=== PATIENT | male | born 1985 | race Caucasian/White ===

== ENCOUNTER 2019-11-05 13:41 | Outpatient (CLI) | payer OTHER, SELFPAY ==
--- NOTE | 2019-11-05 14:28 | DI.MRI_ITS ---
EXAM: MR LUMBAR SPINE WO CLINICAL HISTORY: ID AUTH #[id number], LEG PAIN [id number], LUMBAR RADICULOPATHY [id number], LUMBAR SPOND YLOSIS [id number]. TECHNIQUE: Multiplanar multisequence MRI was performed. COMPARISON: No exams were available for comparison FINDINGS: The T12-L1 through L3-4 as well as L5-S1 discs appear intact. At L4-5, there is mild loss of disc he ight and disc desiccation. There is a left paracentral disc herniation with some inferior extrusion of disc material. There is impression on the anterior and left side of the thecal sac. This causes mild central canal stenosis. There is mild left neural foraminal narrowing. There are mild facet nieves int degenerative changes at this level. Marrow signal is normal. The conus medullaris appears intac t. IMPRESSION: Left paracentral disc herniation with inferior extrusion of disc material at L4-5.
== END 2019-11-05 14:01 ==
PROVIDERS: PCP Emergency Medicine; Visit Provider Neurological Surgery
DX: M54.5 Low back pain (principal); M79.606 Pain in leg, unspecified; M54.16 Radiculopathy, lumbar region; M51.17 Intervertebral disc disorders with radiculopathy, lumbosacral region
CPT/HCPCS: 72148

== ENCOUNTER 2020-09-28 00:36 | Outpatient (CLI) | payer OTHER, SELFPAY ==
--- NOTE | 2020-09-28 | DI.MRI_ITS ---
EXAM: MR LUMBAR SPINE WO CLINICAL HISTORY: [id number],LUMBAR SPONDYLOSIS,[id number],LT BUTTOCK AND LEG PAIN,H/O HNP. TECHNIQUE: Multiplanar multisequence MRI of the Lumbar spine was performed. COMPARISON: MR MR LUMBAR SPINE WO from 11/05/2019 FINDINGS: Bones: The last intervertebral disc space is designated the L5/S1 level for the numbering purpose of this examination. The vertebral body heights are well maintained. Alignment is satisfactory. The si gnal characteristics are unremarkable. Cord: The conus tip ends at the L1 level. It is of normal size and signal intensity. T12-L1: No disc herniations or bulges are present. No central spinal canal or neural foraminal stenos is. L1-2: No disc herniations or bulges are present. No central spinal canal or neural foraminal stenosis . L2-3: No disc herniations or bulges are present. No central spinal canal or neural foraminal stenosis . L3-4: No disc herniations or bulges are present. No central spinal canal or neural foraminal stenosis . L4-5: There is a left paracentral disc herniation with extrusion posterior to the L5 vertebral body. It causes left lateral recess stenosis and compresses the left L5 nerve root. Degenerative changes of the facets are noted. These all contribute to cause mild central spinal canal stenosis. There is mild narrowing of the left neural foramen. L5-S1: No disc herniations or bulges are present. No central spinal canal or neural foraminal stenosi s. Soft tissues: The visualized SI joints and sacrum are well maintained. The paraspinal soft tissues ar e unremarkable. IMPRESSION: Stable left paracentral disc herniation at L4-5 with extrusion posterior to the L5 vertebral body. I t causes left lateral recess stenosis and compresses the left L5 nerve root. Degenerative changes at this level also contribute to cause mild central spinal canal stenosis and left neural foraminal constantino nosis. DATA REPOSITORY:
--- OUTSIDE RECORDS SUMMARY | 2020-09-28 00:39 | XMS_ITS | Encounter Summary ---
:1985 Author Organization [facility] Address [address] [place] [id number] Care Team Providers Name Role Phone CARLOS A OLIVER Primary Care Provider Unavailable CARLOS A OLIVER Primary Care Provider Unavailable Selected Encounter This section includes the information on record at [place] for the Encounter. Date/Time Encounter Type Encounter Description Reason Provider Source Sep 23, 2020 12:29 Outpatient Encounter TELEPHONE TRIAGE PM IHE Encounter Template Text not used by [place] Plan of Treatment: Future Appointments (+ 6 months) and Future Tests (+/- 45 days) The Plan of Treatment section includes future care activities for the patient from all [place] treatment facilities. This section includes future appointments and future orders which are active, pending or scheduled.Active, Pending, and Scheduled Orders This section includes a listing of several types of active, pending, and scheduled orders, including clinic medications orders, diagnostic test orders, procedure orders and cons ult orders; where the start date of the order is 45 days before the date of the Encounter or 45 days after the date of the Encounter. The data comes from all [place] treatment facilities. Test Date/Time Test Type Test Details Facility Name Aug 31, 2020 02:23 PM Consult Order [facility] [place] [facility]-NEUROSURGERY [facility] [place] [facility] Sep 04, 2020 12:33 PM Consult Order PHYSICAL [place] [facility] THERAPY-OUTPATIENT [facility] [place] [facility] Sep 24, 2020 10:20 AM Consult Order COMMUNITY CARE-CI [place] [facility] ACUPUNCTURE [facility] [place] [facility] Social History: Smoking Status (Most current) and Tobacco Use (All prior to encounter date) This section includes the most current, and the historical, smoking and tobacco-related health factors from the [place] facility where the Encounter took place.Current Smoking Status This section includes the most current smoking, or tobacco-related health factor, from the [place] facility where the Encounter took place. Date/Time Current Smoking Status Comment Facility Sep 04, 2020 11:00 AM VA-TOBACCO USER EVERY DAY [place] [facility] Tobacco Use History This section includes a history of the smoking, or tobacco-related health factors, that were collected on or before the date of the Encounter. The data comes from the [place] facility where the Encounter took place. 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 [place] [facility] Sep 04, 2020 11:00 AM VA-TOBACCO USE MED NO [place] [facility] Sep 04, 2020 11:00 AM VA-TOBACCO USE WI 30 MIN [place] [facility] Sep 04, 2020 11:00 AM VA-TOBACCO USER EVERY DAY [place] [facility] Dec 25, 2017 01:37 PM CURRENT [place]MOKER [place] [facility] Dec 25, 2017 01:37 PM V1-PT DECL[place]ES REF [place] TOBACCO CESS PRGM [facility] Dec 25, 2017 01:37 PM V1-PT DECLINES TOBACCO [place] CESSATION MEDS [facility] Dec 25, 2017 01:37 PM V1-PT THINKING ABOUT QUIT [place] TOBACCO USE [facility] May 26, 2017 01:03 PM CURRENT SMOKER [place] [facility] Jan 27, 2017 10:24 AM CURRENT SMOKER [place] [facility] Jan 27, 2017 10:24 AM V1-PT READY TO QUIT [place] TOBACCO USE [facility] Dec 31, 2015 09:11 AM V1-PT NOT INTERESTED IN [place] QUIT TOBACCO USE [facility] Oct 30, 2015 01:16 PM AH-BPR CONCERN SMOKING [place] [facility] Oct 30, 2015 01:16 PM AH-BPR SMOKING DEPLOYMENT [place] YES [facility] Oct 30, 2015 01:16 PM CURRENT SMOKER [place] [facility] Sep 10, 2014 02:45 PM [facility] [facility] Sep 10, 2014 02:45 PM V1-PT DECL[place]ES REF [place] TOB[place] CESS PRGM [facility] Sep 10, 2014 02:45 PM V1-PT THINKING ABOUT QUIT [place] TOBAC[place] USE [facility] Sep 10, 2014 02:45 PM V1-TOBACCO CESS MEDS NOT [place] PRESCRIBED Pt. will discuss with PCP tomorr ow. [facility] March 07, 2013 11:00 AM CURRENT SMOK[place] 1pp[place] [facility] March 07, 2013 11:00 AM V1-PT DECL[place]ES REF [place] TOB[place] CESS PRGM [facility] March 07, 2013 11:00 AM V1-PT DECLINES [place]BACCO [place] CESSATION MEDS [facility] March 07, 2013 11:00 AM V1-PT NOT INTERESTED IN [place] QUIT TOBACCO USE [facility] Encounter Notes: All associated encounter notes This section contains the clinical notes associated to the Encounter. Date/Time Encounter Note(s) Provider Source Sep 23, 2020 12:29 PM TELEPHONE ENCOUNTER NOTE: JOSEPH STEVENS [place] LOCAL TITLE: VISN 1 CCC ACTION REQUIRED [facility] STANDARD TITLE: TELEPHONE ENCOUNTER NOTE DATE OF NOTE: SEP 23, 2020@12:29:35 ENTRY DATE: SEP 23, 2020@12:32:31 AUTHOR: JOSEPH STEVENS EXP COSIGNER: URGENCY: STATUS: COMPLETED Type of call: MEDICATION -ACTION REQUIRED. Caller Response: SENT TO PACT The patient, VALENTINA REYNOLDS ([id number]) called the call center. Comments: Patient is calling asking for a consult through [facility] Acup[facility]. The patient has found Pricilla pham in [facility]. Thank you Evaluation/Management Code: HC PRO PHONE CALL 5- 10 MIN ([phone]). Starting at: 09/23/2020 @ 12:29:35 PM Ending at: 09/23/2020 @ 12:32:19 PM Length: 2 minutes. Author: JOSEPH STEVENS Caller Area: * [place] Chief Complaint: Not applicable to call. Class Code: Other specified counseling. Contact Patient's Email Address: /es/ JOSEPH STEVENS [facility] Advanced Insurance Investigator Signed: 09/23/2020 12:32 Receipt Acknowledged By: * AWAITING SIGNATURE * CARLOS A OLIVER * AWAITING SIGNATURE * ESVIN MATTHEWS
--- OUTSIDE RECORDS SUMMARY | 2020-09-28 00:39 | XMS_ITS | Encounter Summary ---
:1985 Author Organization Department [facility] Address [address] [place] [address] Care Team Providers Name Role Phone CARLOS A OLIVER Primary Care Provider Unavailable CARLOS A OLIVER Primary Care Provider Unavailable Selected Encounter This section includes the information on record at [place] for the Encounter. Date/Time Encounter Type Encounter Description Reason Provider Source Aug 31, 2020 10:25 Outpatient Encounter ADMIN PAT ACTIVTIES AM (MASNONCT) IHE Encounter Template Text not used by [place] Plan of Treatment: Future Appointments (+ 6 months) and Future Tests (+/- 45 days) The Plan of Treatment section includes future care activities for the patient from all [place] treatment facilities. This section includes future appointments and future orders which are active, pending or scheduled.Future Appointments This section includes appointments that were scheduled to occur 6 months from the date of the Encounter, up to a maximum of 20 appointments. The [facility] [place] [facility] Appointment Date/Time Appointment Type Appointment Facili ty Name Sep 04, 2020 11:00 AM AMBULATORY - MEDICINE [facility] Sep 14, 2020 03:20 PM AMBULATORY - NONE [facility] Sep 17, 2020 03:00 PM AMBULATORY - PSYCHIATRY [facility] Sep 22, 2020 01:00 PM AMBULATORY - PSYCHIATRY [facility] Active, Pending, and Scheduled Orders This section includes a listing of several types of active, pending, and scheduled orders, including clinic medications orders, diagnostic test orders, procedure orders and consult orders; where the start date of the order is 45 days before the date of the Encounter or 45 days after the date of the Encounter. The data comes from all [place] treatment facilities. Test Date/Time Test Type Test Details Facility Name Aug 31, 2020 02:23 PM Consult Order [place] [place] [facility] CARE-NEUROSURGERY Cons [place] [facility] Sep 04, 2020 12:33 PM Consult Order PHYSICAL [place] [facility] THERAPY-OUTPATIENT Cons [place] [facility] Sep 24, 2020 10:20 AM Consult Order COMMUNITY CARE-CIH [place] [facility] ACUPUNCTURE Cons [place] [facility] Social History: Smoking Status (Most current) and Tobacco Use (All prior to encounter date) This section includes the most current, and the historical, smoking and tobacco-related health factors from the [place] facility where the Encounter took place.Current Smoking Status This section includes the most current smoking, or tobacco-related health factor, from the [place] facility where the Encounter took place. Date/Time Current Smoking Status Comment Facility Dec 25, 2017 01:37 PM CURRENT SMOKER [place] [facility] Tobacco Use History This section includes a history of the smoking, or tobacco-related health factors, that were collected on or before the date of the Encounter. The data comes from the [place] facility where the Encounter took place. Date/Time Smoking Status/Tobacco Use Comment [facility] Dec 25, 2017 01:37 PM V1-PT DECLINES REF TO [place] TOB[place] CESS PRGM [facility] Dec 25, 2017 01:37 PM V1-PT DECLINES TOBACCO [place] CESSATION MEDS [facility] Dec 25, 2017 01:37 PM V1-PT THINKING ABOUT QUIT [place] TOBACCO USE [facility] May 26, 2017 01:03 PM CURRENT SMOKER [place] [facility] Jan 27, 2017 10:24 AM CURRENT SMOKER [place] [facility] Jan 27, 2017 10:24 AM V1-PT READY TO QUIT [place] TOBACCO USE [facility] Dec 31, 2015 09:11 AM V1-PT NOT INTERESTED IN [place] QUIT TOBACCO USE [facility] Oct 30, 2015 01:16 PM AH-BPR CONCERN SMOKING [place] [facility] Oct 30, 2015 01:16 PM AH-BPR SMOKING DEPLOYMENT [place] YES [facility] Oct 30, 2015 01:16 PM CURRENT [place]MOKER [place] [facility] Sep 10, 2014 02:45 PM CURRENT SMOKER [place] [facility] Sep 10, 2014 02:45 PM V1-PT DECLINES REF [place] [facility] [facility]ESS [facility] Sep 10, 2014 02:45 PM V1-PT THINKING ABOUT QUIT [place] [facility] Sep 10, 2014 02:45 PM V1-TOBACCO CESS MEDS NOT [place] PRESCRIBED Pt. will discuss with PCP tomorr ow. [facility] March 07, 2013 11:00 AM CURRENT SMOK[place] 1pp[place] [facility] March 07, 2013 11:00 AM V1-PT DECLINES REF [place] TOB[place] CESS PRGM [facility] March 07, 2013 11:00 AM V1-PT DECLINES [place]BACCO [place] [facility] March 07, 2013 11:00 AM V1-PT NOT INTERESTED IN [place] QUIT TOBACCO USE [facility] Encounter Notes: All associated encounter notes This section contains the clinical notes associated to the Encounter. Date/Time Encounter Note(s) Provider Source Aug 31, 2020 10:25 AM PRIMARY CARE ADMINISTRATIVE NOTE: EL HOOVER [place] LOCAL TITLE: Administrative Note/Primary Care [facility] STANDARD TITLE: PRIMARY CARE ADMINISTRATIVE NOTE DATE OF NOTE: AUG 31, 2020@10:25 ENTRY DATE: AUG 31, 2020@10:25:39 AUTHOR: AZEB HOOVER EXP COSIGNER: URGENCY: STATUS: COMPLETED Administrative Note/Primary Care Has ADDE NDA CONSTANCE REYNOLDS [address] [place], [place] [address] CARLOS A OLIVER 2 O [] [place] [] Spouse [] Other [id number] MALE presented w/ CHIEF COMPLAINT OF:p t called with request for renewal of consult to [facility] for continuing care for same issue. 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
--- OUTSIDE RECORDS SUMMARY | 2020-09-28 00:40 | XMS_ITS | Encounter Summary ---
:1985 Author Organization Department [facility] Address [address] [place] [address] Care Team Providers Name Role Phone CARLOS A OLIVER Primary Care Provider Unavailable CARLOS A OLIVER Primary Care Provider Unavailable Selected Encounter This section includes the information on record at [place] for the Encounter. Date/Time Encounter Type Encounter Description Reason Provider Source Jun 25, 2020 01:29 Outpatient Encounter ADMIN PAT ACTIVTIES PM (MASNONCT) IHE Encounter Template Text not used by [place] Plan of Treatment: Future Appointments (+ 6 months) and Future Tests (+/- 45 days) The Plan of Treatment section includes future care activities for the patient from all [place] treatment facilities. This section includes future appointments and future orders which are active, pending or scheduled.Future Appointments This section includes appointments that were scheduled to occur 6 months from the date of the Encounter, up to a maximum of 20 appointments. The data [facility] [place] [facility] Appointment Date/Time Appointment Type Appointment Facili ty Name Aug 31, 2020 02:00 PM AMBULATORY - REHAB MEDICINE [place] [facility] Sep 04, 2020 11:00 AM AM[place]UL[place]ORY [place]IC[place] [facility] Sep 14, 2020 03:20 PM AM[facility]ORY - NONE [place] [facility] Sep 17, 2020 03:00 PM AMBULATORY - PS[place]CHIATRY [place] [facility] Sep 22, 2020 01:00 PM AMBULATORY - PS[place]CHIATRY [place] [facility] Social History: Smoking Status (Most current) and Tobacco Use (All prior to encounter date) This section includes the most current, and the historical, smoking and tobacco-related health factors from the [place] facility where the Encounter took place.Current Smoking Status This section includes the most current smoking, or tobacco-related health factor, from the [place] facility where the Encounter took place. Date/Time Current Smoking Status Comment Facility Dec 25, 2017 01:37 PM CURRENT [place]MOK[place] [facility] Tobacco Use History This section includes a history of the smoking, or tobacco-related health factors, that were collected on or before the date of the Encounter. The data comes from the [place] facility where the Encounter took place. Date/Time Smoking Status/Tobacco Use Comment [facility] Dec 25, 2017 01:37 PM V1-PT DECLINES REF [place] TO[place] CESS [facility] Dec 25, 2017 01:37 PM V1-PT DECLINES TOBACCO [place] CESSATION MEDS [facility] Dec 25, 2017 01:37 PM V1-PT THINKING ABOUT QUIT [place] TOBACCO USE [facility] May 26, 2017 01:03 PM CURRENT SMOKER [place] [facility] Jan 27, 2017 10:24 AM CURRENT SMOKER [place] [facility] Jan 27, 2017 10:24 AM V1-PT READY TO QUIT [place] TOBACCO USE [facility] Dec 31, 2015 09:11 AM V1-PT NOT INTERESTED IN [place] QUIT TOBACCO USE [facility] Oct 30, 2015 01:16 PM AH-BPR CONCERN SMOKING [place] [facility] Oct 30, 2015 01:16 PM AH-BPR SMOKING DEPLOYMENT [place] YES [facility] Oct 30, 2015 01:16 PM CURRENT SMOKER [place] [facility] Sep 10, 2014 02:45 PM CURRENT SMOKER [place] [facility] Sep 10, 2014 02:45 PM V1-PT DECLINES REF [place] TO[place] CESS [facility]GM [facility] Sep 10, 2014 02:45 PM V1-PT THINKING ABOUT QUIT [place] TOBACCO USE [facility] Sep 10, 2014 02:45 PM V1-TOBACCO CESS MEDS NOT [place] PRESCRIBED Pt. will discuss with PCP tomorr ow. [facility] March 07, 2013 11:00 AM CURRENT SMOKER [place] 1ppd [facility] March 07, 2013 11:00 AM V1-PT DECLINES [place] CESS [facility] March 07, 2013 11:00 AM V1-PT DECLINES [place] [facility] [facility] March 07, 2013 11:00 AM V1-PT NOT INTERESTED IN [place] QUIT [facility]BACCO USE [facility] Encounter Notes: All associated encounter notes This section contains the clinical notes associated to the Encounter. Date/Time Encounter Note(s) Provider Source Jun 25, 2020 01:29 PM ACCOUNTING OF DISCLOSURES NOTE: [place] LOCAL TITLE: STATE PRESCRIPTION DRUG MONITORING PROGRAM (SPDMP) [facility] STANDARD TITLE: ACCOUNTING OF DISCLOSURES NOTE DATE OF NOTE: JUN 25, 2020@13:29 ENTRY DATE: JUN 25, 2020@13:29:59 AUTHOR: CURT ZHANG EXP COSIGNER: URGENCY: STATUS: COMPLETED V1-STATE PRESCRIPTION DRUG MONITORING PROGRAM (S PDMP) The purpose of this query was a part of the medi cation reconciliation process for the: Review for patient safety. The following State Prescription Drug Monitoring Program(s) were queried for this patient: [facility] (01/25/2018: [place] PDMP information may be placed in the patient medical records that pertains to MD specific data ONLY, not from an interstate query) [facility] No prescription(s) for controlled substances wer e found to be filled outside the [facility]. /zack/ CURT ZHANG Signed: 06/25/2020 13:30
--- OUTSIDE RECORDS SUMMARY | 2020-09-28 00:40 | XMS_ITS | Encounter Summary ---
:1985 Author Organization [facility] Address [address] [place] [id number] Care Team Providers Name Role Phone CARLOS A OLIVER Primary Care Provider Unavailable CARLOS A OLIVER Primary Care Provider Unavailable Selected Encounter This section includes the information on record at [place] for the Encounter. Date/Time Encounter Type Encounter Reason Provider Source Description Sep 22, 2020 PSYTX W PT 30 TELEPHONE ICD-10-CM ROBSON,CASE 01:00 PM MINUTES M54.5 Low back Y EDWARD pain with Provider Comments: Chronic back pain ([facility] [id number]) IHE Encounter Template Text not used by [facility] Assessments - Encounter Diagnoses This section includes the primary and secondary diagnoses documented forthe Encounter. Date/Time Primary/Secondary Diagnosis Name Provider Source Diagnosis Sep 22, 2020 PRIMARY Low back pain LEELA MIRANDA 01:00 PM M [facility] Sep 22, 2020 SECONDARY Post-traumatic LEELA MIRANDA 01:00 PM stress disorder, M [facility] chronic Plan of Treatment: Future Appointments (+ 6 months) and Future Tests (+/- 45 days) The Plan of Treatment section includes future care activities for the patient from all [place] treatment facilities. This section includes future appointments [...] the Encounter. The data comes from all [place] treatment facilities. Test Date/Time Test Type Test Details Facility Name Aug 31, 2020 02:23 PM Consult Order COMMUNITY BREANN [place] [facility] CARE-NEUROSURGERY Cons Catalyst Operator's Choice Sep 04, 2020 12:33 PM Consult Order PHYSICAL BREANN SHARP [facility] THERAPY-OUTPATIENT Cons Catalyst Operator's Choice Sep 24, 2020 10:20 AM Consult Order COMMUNITY CARE-CIH BREANN Christopher LONGER LILA [facility] ACUPUNCTURE Cons Catalyst Operator's Choice Surgical Procedures: All associated to the encounter This section includes all Surgical Procedures and Surgical Procedure Notes associated to the Encounter.Surgical Procedures This section includes all Surgical Procedures associated to the Encounter.Surgical Procedure Date/Time Procedure Procedure Type Procedure Provider Source Qualifiers Sep 22, 2020 Psychotherapy, PSYTX W PT 30 Other Procedure Monique CHANCE BREANN MASON 01:00 PM 30 minutes with MINUTES CPT Code(s): MAHSA SHARP [facility] Patient AH-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 Social History: Smoking Status (Most current) and Tobacco Use (All prior to encounter date) This section includes the most current, and the historical, smoking and tobacco-related health factors from the [place] facility where the Encounter took place.Current Smoking Status This section includes the most current smoking, or tobacco-related health factor, from the [place] facility where the Encounter took place. Date/Time Current Smoking Status Comment Facility Sep 04, 2020 11:00 AM VA-TOBACCO USER EVERY DAY BREANN MASON [facility] Tobacco Use History This section includes a history of the smoking, or tobacco-related health factors, that were collected on or before the date of the Encounter. The data comes from the [place] facility where the Encounter took place. 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 BREANN SHARP [facility] Sep 04, 2020 11:00 AM VA-TOBACCO USE MED NO [place]SE [place] [facility] Sep 04, 2020 11:00 AM VA-TOBACCO USE WI 30 MIN W OLY [place] SHARP [facility] Sep 04, 2020 11:00 AM VA-TOBACCO USER EVERY DAY BREANN SHARP [facility] Dec 25, 2017 01:37 PM CURRENT SMOKER BREANN DIANACindy SHARP [facility] Dec 25, 2017 01:37 PM V1-PT DECL[place]ES [place] TO[place] CESS PRGM [facility] Dec 25, 2017 01:37 PM V1-PT DECL[place]ES [place]AC[place] CESSATION MEDS [facility] Dec 25, 2017 01:37 PM V1-PT THINKING ABOUT QUIT [place] TO[facility]ACCO USE [facility] May 26, 2017 01:03 PM CURRENT [place]MOK[place] [facility] Jan 27, 2017 10:24 AM CURRENT SMOKER [place] [facility] Jan 27, 2017 10:24 AM V1-PT READY TO QUIT [place] TOBACCO USE [facility] Dec 31, 2015 09:11 AM V1-PT NOT INTERESTED IN [place] QUIT TOBACCO USE [facility] Oct 30, 2015 01:16 PM AH-BPR CONCERN SMOKING [place] [facility] Oct 30, 2015 01:16 PM AH-BPR SMOKING DEPLOYMENT [place] YES [facility] Oct 30, 2015 01:16 PM CURRENT SMOKER [place] [facility] Sep 10, 2014 02:45 PM CURRENT [place]MOK[place] [facility] Sep 10, 2014 02:45 PM V1-PT DECLINES REF [place] TOB[place] CESS PRGM [facility] Sep 10, 2014 02:45 PM V1-PT THINKING ABOUT QUIT [place] TOBACCO USE [facility] Sep 10, 2014 02:45 PM V1-TOBACCO CESS MEDS NOT [place] PRESCRIBED Pt. will discuss with PCP tomorr ow. [facility] March 07, 2013 11:00 AM CURRENT SMOKER [place] 1ppd [facility] March 07, 2013 11:00 AM V1-PT DECLINES REF [place] TOB[place] CESS PRGM [facility] March 07, 2013 11:00 AM V1-PT DECLINES [place]BACCO [place] CESSATION MEDS [facility] March 07, 2013 11:00 AM V1-PT NOT INTERESTED IN [place] QUIT TOBACCO USE [facility]
--- OUTSIDE RECORDS SUMMARY | 2020-09-28 00:40 | XMS_ITS | Encounter Summary ---
:1985 Author Organization Department [facility] Address [address] [place] [id number] Care Team Providers Name Role Phone CARLOS A OLIVER Primary Care Provider Unavailable CARLOS A OLIVER Primary Care Provider Unavailable Selected Encounter This section includes the information on record at [place] for the Encounter. Date/Time Encounter Type Encounter Reason Provider Source Description Sep 04, 2020 Outpatient TELEPHONE PRIMARY ICD-10-CM M54.5 CARLOS A OLIVER 11:00 AM Encounter CARE Low back pain with Provider Comments: Chronic back pain ([facility] [phone]) IHE Encounter Template Text not used by VA Assessments - Encounter Diagnoses This section includes the primary and secondary diagnoses documented forthe Encounter. Date/Time Primary/Secondary Diagnosis Name Provider Source Diagnosis Sep 04, 2020 11:00 PRIMARY Low back pain CARLOS A OLIVER [place] [facility] Plan of Treatment: Future Appointments (+ 6 months) and Future Tests (+/- 45 days) The Plan of Treatment section includes future care activities for the patient from all [place] treatment facilities. This section includes future appointments and future orders which are active, pending or scheduled.Future Appointments This section includes appointments that were scheduled to occur 6 months from the date of the Encounter, up to a maximum of 20 appointments. The [facility] [place] [facility] Appointment Date/Time Appointment Type Appointment Facili ty Name Sep 14, 2020 03:20 PM AMBULATORY - NONE [facility] Sep 17, 2020 03:00 PM AMBULATORY - PSYCHIATRY [facility] Sep 22, 2020 01:00 PM AMBULATORY - PSYCHIATRY [facility] Active, Pending, and Scheduled Orders This section includes a listing of several types of active, pending, and scheduled orders, including clinic medications orders, diagnostic test orders, procedure orders and consult orders; where the start date of the order is 45 days before the date of the Encounter or 45 days after the date of the Encounter. The data comes from all [place] treatment facilities. Test Date/Time Test Type Test Details Facility Name Aug 31, 2020 02:23 PM Consult Order COMMUNITY [place] [facility] CARE-NEUROSURGERY Cons Alarm Technician's Choice Sep 04, 2020 12:33 PM Consult Order PHYSICAL [place] [facility] THERAPY-OUTPATIENT Cons Alarm Technician's Choice Sep 24, 2020 10:20 AM Consult Order COMMUNITY CARE-CIH [place] [facility] ACUPUNCTURE Cons Alarm Technician's Choice Social History: Smoking Status (Most current) and Tobacco Use (All prior to encounter date) This section includes the most current, and the historical, smoking and tobacco-related health factors from the [place] facility where the Encounter took place.Current Smoking Status This section includes the most current smoking, or tobacco-related health factor, from the [place] facility where the Encounter took place. Date/Time Current Smoking Status Comment Facility Sep 04, 2020 11:00 AM VA-TOBACCO USER EVERY DAY BREANN [place] [facility] Tobacco Use History This section includes a history of the smoking, or tobacco-related health factors, that were collected on or before the date of the Encounter. The data comes from the [place] facility where the Encounter took place. 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 FUNDER NO [place] [facility] Sep 04, 2020 11:00 AM VA-TOBACCO USE MED NO [place] [facility] Sep 04, 2020 11:00 AM VA-TOBACCO USE WI 30 MIN W [place] [facility] Sep 04, 2020 11:00 AM VA-TOBACCO USER EVERY DAY [place] [facility] Dec 25, 2017 01:37 PM CURRENT SMOKER [place] [facility] Dec 25, 2017 01:37 PM V1-PT DECLINES REF [place] TO[place] CESS PRGM [facility] Dec 25, 2017 01:37 PM V1-PT DECLINES [place]BACCO [place] CESSATION MEDS [facility] Dec 25, 2017 01:37 PM V1-PT THINKING ABOUT QUIT [place] TOBACCO USE [facility] May 26, 2017 01:03 PM CURRENT SMOKER [place] [facility] Jan 27, 2017 10:24 AM CURRENT SMOKER [place] [facility] Jan 27, 2017 10:24 AM V1-PT READY TO QUIT [place] TOBACCO USE [facility] Dec 31, 2015 09:11 AM V1-PT NOT INTERESTED IN [place] QUIT TOBACCO USE [facility] Oct 30, 2015 01:16 PM AH-BPR CONCERN SMOKING [place] [facility] Oct 30, 2015 01:16 PM AH-BPR SMOKING DEPLOYMENT BRE[place] YES [facility] Oct 30, 2015 01:16 PM CURRENT SMOKER [place] [facility] Sep 10, 2014 02:45 PM CURRENT SMOKER BRE[place] [facility] Sep 10, 2014 02:45 PM V1-PT DECL[place]ES [place]F [place] CESS PRGM [facility] Sep 10, 2014 02:45 PM V1-PT THINKING ABOUT QUIT [place] TOB[place]CO [place] [facility] Sep 10, 2014 02:45 PM V1-TOBACCO CESS MEDS NOT [place] PRESCRIBED Pt. will discuss with PCP tomorr ow. [facility] March 07, 2013 11:00 AM CURRENT SMOKER [place] 1ppd [facility] March 07, 2013 11:00 AM V1-PT DECLINES REF [place] TO[place] CESS PRGM [facility] March 07, 2013 11:00 AM V1-PT DECLINES [place]BACCO [place] CESSATION MEDS [facility] March 07, 2013 11:00 AM V1-PT NOT INTERESTED IN [place] QUIT TOBACCO USE [facility] Encounter Notes: All associated encounter notes This section contains the clinical notes associated to the Encounter. Date/Time Encounter Note(s) Provider Source Sep 04, 2020 12:06 PM INTERNAL MEDICINE TELEPHONE ENCOUNTER NOTE : CARLOS A OILVER [place] [facility] LOCAL TITLE: GIM Telephone Note STANDARD TITLE: INTERNAL MEDICINE TELEPHONE ENCO UNTER NOTE DATE OF NOTE: SEP 04, 2020@12:06 ENTRY DATE: SEP 04, 2020@12:06:34 AUTHOR: CARLOS A OLIVER EXP COSIGNER: URGENCY: STATUS: COMPLETED GIM Telephone Note Has ADDENDA Routine visit - phone due to COVID Clinical reminders - tob, do es not want to quit; alc - 3 drinks daily (whisky), on weekends more; PTSD screen positive In bed since back pain started but did go over t o his parents for a meal ROS no fevers, no nausea, no chest pain, no dysp merlin, slowly worsening cough (burn pits), no abd pain, no bowel/bladder issue s Not working for a couple weeks - works an [employer] Has a dog named Presley, a mastiff Meds reviewed and reconciled Lumbar radiculopathy - working with pain clinic who referred him to neurosurgery; no opioids given excessive alcohol use, we discussed this again today PTSD - he is willing to speak with a counselor a bout this and understands my concern about his alcohol us e which he uses to decrease his stress levels which he admits are related to PTSD. Counselled again on alcohol use concerns and advised limits. Burn pit exposure - PFTs in 2015 normal, conside r repeating post-pandemic RTC VVC 6 months Adding VVC test caller for non-urgent test call /zack/ CARLOS A Raygoza MD Signed: 09/04/2020 12:32 Receipt Acknowledged By: 09/07/2020 13:46 /es/ CURT BEASLEY 09/07/2020 ADDENDUM STATUS: COMPLETED Info Only: [employer] Capable: Patient has successfully tested or used [employer]. NOTE This freelance writer contacted this patien t and performed a VVC test successfully with him. This patient will be using his iPhone as his VVC device. He successfully downloaded the required florentin that [employer] requires to perform successful VVC visits. This patient's [facility] address is the correct address to use as well. This patient is all set for future VVC visits. /es/ CURT ZHANG Signed: 09/07/2020 13:45 Receipt Acknowledged By: * AWAITING SIGNATURE * CARLOS A OLIVER
--- OUTSIDE RECORDS SUMMARY | 2020-09-28 00:40 | XMS_ITS | Encounter Summary ---
:1985 Author Organization Department [facility] Address [address] [place] [address] Care Team Providers Name Role Phone CARLOS A OLIVER Primary Care Provider Unavailable CARLOS A OLIVER Primary Care Provider Unavailable Selected Encounter This section includes the information on record at [place] for the Encounter. Date/Time Encounter Type Encounter Description Reason Provider Source Aug 31, 2020 03:31 Outpatient Encounter ADMIN PAT ACTIVTIES PM ([facility]) IHE Encounter Template Text not used by MD Plan of Treatment: Future Appointments (+ 6 months) and Future Tests (+/- 45 days) The Plan of Treatment section includes future care activities for the patient from all [place] treatment facilities. This section includes future appointments and future orders which are active, pending or scheduled.Future Appointments This section includes appointments that were scheduled to occur 6 months from the date of the Encounter, up to a maximum of 20 appointments. The [facility] Appointment Date/Time Appointment Type Appointment Facili ty Name Sep 04, 2020 11:00 AM AMBULATORY - MEDICINE [facility] Sep 14, 2020 03:20 PM AMBULATORY - NONE [facility] Sep 17, 2020 03:00 PM AMBULATORY - PSYCHIATRY [facility] Sep 22, 2020 01:00 PM AMBULATORY - PSYCHIATRY [facility] Active, Pending, and Scheduled Orders This section includes a listing of several types of active, pending, and scheduled orders, including clinic medications orders, diagnostic test orders, procedure orders and consult orders; where the start date of the order is 45 days before the date of the Encounter or 45 days after the date of the Encounter. The data comes from all [place] treatment facilities. Test Date/Time Test Type Test Details Facility Name Aug 31, 2020 02:23 PM Consult Order COMMUNITY BREANN [place] [facility] CARE-NEUROSURGERY Cons Barrel Charrer Helper's Choice Sep 04, 2020 12:33 PM Consult Order PHYSICAL BREANN [place] [facility] THERAPY-OUTPATIENT Cons Barrel Charrer Helper's Choice Sep 24, 2020 10:20 AM Consult Order COMMUNITY CARE-CIH [place] [facility] ACUPUNCTURE Cons Barrel Charrer Helper's Choice Social History: Smoking Status (Most current) and Tobacco Use (All prior to encounter date) This section includes the most current, and the historical, smoking and tobacco-related health factors from the [place] facility where the Encounter took place.Current Smoking Status This section includes the most current smoking, or tobacco-related health factor, from the [place] facility where the Encounter took place. Date/Time Current Smoking Status Comment Facility Dec 25, 2017 01:37 PM CURRENT SMOKER BREANN [place] [facility] Tobacco Use History This section includes a history of the smoking, or tobacco-related health factors, that were collected on or before the date of the Encounter. The data comes from the [place] facility where the Encounter took place. Date/Time Smoking Status/Tobacco Use Comment [facility] Dec 25, 2017 01:37 PM V1-PT DECL[place]ES [place]F [place] TO[place] CESS PRGM [facility] Dec 25, 2017 01:37 PM V1-PT DECLINES [place]ACCO [place] CESSATION MEDS [facility] Dec 25, 2017 01:37 PM V1-PT THINKING ABOUT QUIT [place] TOBACCO USE [facility] May 26, 2017 01:03 PM CURRENT SMOKER [place] [facility] Jan 27, 2017 10:24 AM CURRENT SMOKER [place] [facility] Jan 27, 2017 10:24 AM V1-PT READY TO QUIT [place] TOBACCO USE [facility] Dec 31, 2015 09:11 AM V1-PT NOT INTERESTED IN [place] QUIT TOBACCO USE [facility] Oct 30, 2015 01:16 PM AH-BPR CONCERN SMOKING [place] [facility] Oct 30, 2015 01:16 PM AH-BPR SMOKING DEPLOYMENT [place] YES [facility] Oct 30, 2015 01:16 PM CURRENT SMOKER [place] [facility] Sep 10, 2014 02:45 PM CURRENT SMOKER [place] [facility] Sep 10, 2014 02:45 PM V1-PT DECLINES REF [place] TOB[place] CESS PRGM [facility] Sep 10, 2014 02:45 PM V1-PT THINKING ABOUT QUIT [place] TOBACCO USE [facility] Sep 10, 2014 02:45 PM V1-TOBACCO CESS MEDS NOT [place] PRESCRIBED Pt. will discuss with PCP tomorr ow. [facility] March 07, 2013 11:00 AM CURRENT SMOKER [place] 1ppd [facility] March 07, 2013 11:00 AM V1-PT DECLINES [place]F [place] TO[place] CESS PRGM [facility] March 07, 2013 11:00 AM V1-PT DECLINES [place]ACCO [place] CESSATION MEDS [facility] March 07, 2013 11:00 AM V1-PT NOT INTERESTED IN [place] QUIT TOBACCO USE [facility] Encounter Notes: All associated encounter notes This section contains the clinical notes associated to the Encounter. Date/Time Encounter Note(s) Provider Source Aug 31, 2020 03:32 PM ADMINISTRATIVE NOTE: QUEENIE GARCIA [place] LOCAL TITLE: Has Admin Note [facility] STANDARD TITLE: ADMINISTRATIVE NOTE DATE OF NOTE: AUG 31, 2020@15:32 ENTRY DATE: AUG 31, 2020@15:32:08 AUTHOR: QUEENIE GARCIA EXP COSIGNER: URGENCY: STATUS: COMPLETED Reason for call Clinic Name:PHARMACY [facility] [place] [facility] stating his friend Matthew Monzon w ill be picking up his prescription for him. /zack/ QUEENIE GARCIA Pension Agent Signed: 08/31/2020 15:35
--- OUTSIDE RECORDS SUMMARY | 2020-09-28 00:40 | XMS_ITS | Encounter Summary ---
:1985 Author Organization Department [facility] Address [address] [place] [address] Care Team Providers Name Role Phone CARLOS A OLIVER Primary Care Provider Unavailable CARLOS A OLIVER Primary Care Provider Unavailable Selected Encounter This section includes the information on record at [place] for the Encounter. Date/Time Encounter Type Encounter Reason Provider Source Description Aug 31, 2020 Outpatient TELEPHONE/SURGERY ICD-10-CM M47.26 TERRIE VELEZ 02:00 PM Encounter Other spondylosis MATT with radiculopathy, lumbar region with Provider Comments: Other Spondylosis with Radiculopathy, Lumbar Region IHE Encounter Template Text not used by [facility] Assessments - Encounter Diagnoses This section includes the primary and secondary diagnoses documented forthe Encounter. Date/Time Primary/Secondary Diagnosis Name Provider Source Diagnosis Aug 31, 2020 PRIMARY Other spondylosis JENNIFER VELEZ BREANN ELA[place] 02:00 PM with [facility] radiculopathy, lumbar region Plan of Treatment: Future Appointments (+ 6 months) and Future Tests (+/- 45 days) The Plan of Treatment section includes future care activities for the patient from all [place] treatment facilities. This section includes future appointments and future orders which are active, pending or scheduled.Future Appointments This section includes appointments that were scheduled to occur 6 months from the date of the Encounter, up to a maximum of 20 appointments. The [facility] Appointment Date/Time Appointment Type Appointment Facili ty Name Sep 04, 2020 11:00 AM AMBULATORY - MEDICINE [facility] Sep 14, 2020 03:20 PM AMBULATORY - NONE [facility] Sep 17, 2020 03:00 PM AMBULATORY - PSYCHIATRY BREANN [place]OSS [facility] Sep 22, 2020 01:00 PM AMBULATORY - PSYCHIATRY BREANN [place] [facility] Active, Pending, and Scheduled Orders This section includes a listing of several types of active, pending, and scheduled orders, including clinic medications orders, diagnostic test orders, procedure orders and consult orders; where the start date of the order is 45 days before the date of the Encounter or 45 days after the date of the Encounter. The data comes from all [place] treatment facilities. Test Date/Time Test Type Test Details Facility Name Aug 31, 2020 02:23 PM Consult Order COMMUNITY [place] [facility] CARE-NEUROSURGERY [employer] Sep 04, 2020 12:33 PM Consult Order PHYSICAL [place] [facility] THERAPY-OUTPATIENT [employer] Sep 24, 2020 10:20 AM Consult Order COMMUNITY CARE-CI [place] [facility] ACUPUNCTURE [employer] [facility] Social History: Smoking Status (Most current) and Tobacco Use (All prior to encounter date) This section includes the most current, and the historical, smoking and tobacco-related health factors from the [place] facility where the Encounter took place.Current Smoking Status This section includes the most current smoking, or tobacco-related health factor, from the [place] facility where the Encounter took place. Date/Time Current Smoking Status Comment Facility Dec 25, 2017 01:37 PM CURRENT SMOKER BREANN CROSST [facility] Tobacco Use History This section includes a history of the smoking, or tobacco-related health factors, that were collected on or before the date of the Encounter. The data comes from the [place] facility where the Encounter took place. Date/Time Smoking Status/Tobacco Use Comment Jeanette diaz Dec 25, 2017 01:37 PM V1-PT DECL[place]ES [place]F [place] TO[place]AC[place] CESS PRGM [facility] Dec 25, 2017 01:37 PM V1-PT DECL[place]ES [place] CESSATION MEDS [facility] Dec 25, 2017 01:37 PM V1-PT THINKING ABOUT QUIT [place] TOBACCO USE [facility] May 26, 2017 01:03 PM CURRENT SMOKER [place] [facility] Jan 27, 2017 10:24 AM CURRENT SMOKER [place] [facility] Jan 27, 2017 10:24 AM V1-PT READY TO QUIT [place] TOBACCO USE [facility] Dec 31, 2015 09:11 AM V1-PT NOT [place]ESTED [place] QUIT TOBACCO USE [facility] Oct 30, 2015 01:16 PM AH-BPR CONCERN SMOKING [place] [facility] Oct 30, 2015 01:16 PM AH-BPR SMOKING DEPLOYMENT [place] YES [facility] Oct 30, 2015 01:16 PM CURRENT SMOKER [place] [facility] Sep 10, 2014 02:45 PM CURRENT [place] [facility] Sep 10, 2014 02:45 PM V1-PT DECLINES REF [place] TOB[place] CESS PRGM [facility] Sep 10, 2014 02:45 PM V1-PT THINKING ABOUT QUIT [place] TOBACCO USE [facility] Sep 10, 2014 02:45 PM V1-TOBACCO CESS MEDS [place] PRESCRIBED Pt. will discuss with PCP tomorr ow. [facility] March 07, 2013 11:00 AM CURRENT SMOKER [place] 1ppd [facility] March 07, 2013 11:00 AM V1-PT DECL[place]ES [place] [facility] March 07, 2013 11:00 AM V1-PT DECLINES [place]BACCO [place] CESSATION MEDS [facility] March 07, 2013 11:00 AM V1-PT NOT INTERESTED IN [place] QUIT TOBACCO USE [facility] Encounter Notes: All associated encounter notes This section contains the clinical notes associated to the Encounter. Date/Time Encounter Note(s) Provider Source Aug 31, 2020 02:03 PM PAIN NOTE: [place]IFER VELE[place] LOCAL TITLE: Pain Services Note/Anesthesia [facility] STANDARD TITLE: PAIN NOTE DATE OF NOTE: AUG 31, 2020@14:03 ENTRY DATE: AUG 31, 2020@14:03:35 AUTHOR: JENNIFER VELEZ EXP COSIGNER: URGENCY: STATUS: COMPLETED Pain Clinic Telephone Follow-up Note Chief Complaint: low back and LLE pain HPI/Interval history: The armand fierro was last seen in the Pain Clinic on 09/12/[address] Cotton at which time he had LEFT SI joint i njection without much relief. he has also had LESI and TFESI in the pa st also without any relief. He did see [facility] Neurology for NS consult earlier is year and he would like to return there. He had MRI completed there at eva t time. Since that time, pt had oral steroid tap er with good relief until now, when he reached over to get somethin g on his dash and has had increased pain since then. Pain is in low back with radiation into LLE. +LL E weakness Pain level 10/10 today. Pt is asking for another trial of oral steroid t aper which helped him. He is also requesting NS referral. Allergies: HAY DUST Medications: Active Outpatient Medications (excluding Supplie s): Active Outpatient Medications Status 1) OMEPRAZOLE 20MG EC CAP TAKE ONE CAPSULE BY MOUTH ACTIVE EVERY MORNING BEFORE BREAKFAST FOR STOMAC H ACID (TAKE HALF-HOUR BEFORE A MEAL(S) Active Non-VA Medications Status 1) Non-VA CALCIUM CARBONATE TAB DOSAGE UNKNOWN MOUTH ACTIVE TWICE DAILY NEEDED 2 Total Medications REVIEW OF SYSTEMS: He denies any unexplained weight loss, f ever or chills. No saddle anesthesia, no LE weakness, no urinary or bowel retention or incontinence. No difficulty with balance or ambulation. PHYSICAL EXAM: n/a Impression/ Problem List / Plan of Management: 35 yo M with chronic LBP and LLE pain wh o is requesting oral steroid taper for LLE pain exacerbation since he had good relief w ith taper in February 2020. He also need NS consult db dale I will place today. He saw them earlier this year but they said he needs another consult for it to be covered by the [facility]. About 20 minutes spent on this call. /zack/ JENNIFER VELEZ Anesthesiologist Signed: 08/31/2020 14:20
--- OUTSIDE RECORDS SUMMARY | 2020-09-28 00:40 | XMS_ITS ---
:1985 Author Organization [facility] Address [address] [place] [address] Care Team Providers Name Role Phone CARLOS A OLIVER Primary Care Provider Unavailable CARLOS A OLIVER Primary Care Provider Unavailable Selected Encounter This section includes the information on record at [place] for the Encounter. Date/Time Encounter Type Encounter Description Reason Provider Source February 14, 2020 02:27 Outpatient Encounter ADMIN PAT ACTIVTIES PM (MASNONCT) IHE Encounter Template Text not used by [place] Social History: Smoking Status (Most current) and Tobacco Use (All prior to encounter date) This section includes the most current, and the historical, smoking and tobacco-related health factors from the [place] facility where the Encounter took place.Current Smoking Status This section includes the most current smoking, or tobacco-related health factor, from the [place] facility where the Encounter took place. Date/Time Current Smoking Status Comment Facility Dec 25, 2017 01:37 PM CURRENT SMOKER BREANN [place] [facility] Tobacco Use History This section includes a history of the smoking, or tobacco-related health factors, that were collected on or before the date of the Encounter. The data comes from the [place] facility where the Encounter took place. Date/Time Smoking Status/Tobacco Use Comment Jeanette diaz Dec 25, 2017 01:37 PM V1-PT DECLINES REF [place] CESS PRGM [facility] Dec 25, 2017 01:37 PM V1-PT DECLINES [place]BACCO [place] CESSATION MEDS [facility] Dec 25, 2017 01:37 PM V1-PT THINKING ABOUT QUIT [place] TOBACCO USE [facility] May 26, 2017 01:03 PM CURRENT SMOKER [place] [facility] Jan 27, 2017 10:24 AM CURRENT SMOKER [place] [facility] Jan 27, 2017 10:24 AM V1-PT READY TO QUIT [place] TOBACCO USE [facility] Dec 31, 2015 09:11 AM V1-PT NOT INTERESTED [place] QUIT TOBACCO USE [facility] Oct 30, 2015 01:16 PM AH-BPR CONCERN SMOKING [place] [facility] Oct 30, 2015 01:16 PM AH-BPR SMOKING DEPLOYMENT [place] YES [facility] Oct 30, 2015 01:16 PM CURRENT SMOKER [place] [facility] Sep 10, 2014 02:45 PM CURRENT S[place]KER [place] [facility] Sep 10, 2014 02:45 PM V1-PT DECLINES REF [place] CESS PRGM [facility] Sep 10, 2014 02:45 PM V1-PT THINKING ABOUT QUIT [place] TOBACCO USE [facility] Sep 10, 2014 02:45 PM V1-TOBACCO CESS MEDS NOT [place] PRESCRIBED Pt. will discuss with PCP tomorr ow. [facility] March 07, 2013 11:00 AM CURRENT SMOKER [place] 1[place] [facility] March 07, 2013 11:00 AM V1-PT DECLINES REF [place] TO[place] CESS PRGM [facility] March 07, 2013 11:00 AM V1-PT DECLINES [place]BACCO [place] CESSATION MEDS [facility] March 07, 2013 11:00 AM V1-PT NOT INTERESTED IN [place] QUIT TOBACCO USE [facility] Encounter Notes: All associated encounter notes This section contains the clinical notes associated to the Encounter. Date/Time Encounter Note(s) Provider Source February 14, 2020 02:27 PM PRIMARY CARE ADMINISTRATIVE NOTE: VIVEK NINA [place] LOCAL TITLE: Administrative Note/Primary Care [facility] STANDARD TITLE: PRIMARY CARE ADMINISTRATIVE NOTE DATE OF NOTE: FEBRUARY 14, 2020@14:27 ENTRY DATE: FEBRUARY 14, 2020@14:27:48 AUTHOR: VIVEK NINA EXP COSIGNER: URGENCY: STATUS: COMPLETED A letter is being sent out to patient as norma if there is an email address that patient would like on file. /zack/ VIVEK NINA Signed: 02/14/2020 14:30
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
--- OUTSIDE RECORDS SUMMARY | 2020-09-28 00:40 | XMS_ITS | Encounter Summary ---
:1985 Author Organization [facility] Address [address] [place] [id number] Care Team Providers Name Role Phone YESICA LOPES Primary Care Provider Unavailable YESICA LOPES Primary Care Provider Unavailable Selected Encounter This section includes the information on record at [place] for the Encounter. Date/Time Encounter Type Encounter Reason Provider Source Description Aug 31, 2020 10:24 Outpatient TELEPHONE TRIAGE ZAK FUENTES AM Encounter MATT IHE Encounter Template Text not used by [place] Plan of Treatment: Future Appointments (+ 6 months) and Future Tests (+/- 45 days) The Plan of Treatment section includes future care activities for the patient from all [place] treatment facilities. This section includes future appointments and future orders which are active, pending or scheduled.Future Appointments This section includes appointments that were scheduled to occur 6 months from the date of the Encounter, up to a maximum of 20 appointments. The data comes from all [facility]. Appointment Date/Time Appointment Type Appointment Facili ty Name Sep 04, 2020 11:00 AM AMBULATORY - MEDICINE [facility] Sep 14, 2020 03:20 PM AMBULATORY - NONE [facility] Sep 17, 2020 03:00 PM AMBULATORY - PSYCHIATRY [facility] Sep 22, 2020 01:00 PM AMBULATORY - PSYCHIATRY [facility] Active, Pending, and Scheduled Orders This section includes a listing of several types of active, pending, and scheduled orders, including clinic medications orders, diagnostic test orders, procedure orders and consult orders; where the start date of the order is 45 days before the date of the Encounter or 45 days after the date of the Encounter. The data comes from all [place] treatment facilities. Test Date/Time Test Type Test Details Facility Name Aug 31, 2020 02:23 PM Consult Order [place] [facility] CARE-NEUROSURGERY Cons Aluminum Pourer[facility] Sep 04, 2020 12:33 PM Consult Order [place] [facility] THERAPY-OUTPATIENT Cons [facility] [facility] Sep 24, 2020 10:20 AM Consult Order COMMUNITY CARE-CI[place] [facility] ACUPUNCTURE Cons Aluminum Pourer[facility] Social History: Smoking Status (Most current) and Tobacco Use (All prior to encounter date) This section includes the most current, and the historical, smoking and tobacco-related health factors from the [place] facility where the Encounter took place.Current Smoking Status This section includes the most current smoking, or tobacco-related health factor, from the [place] facility where the Encounter took place. Date/Time Current Smoking Status Comment Facility Dec 25, 2017 01:37 PM CURRENT [place] [facility] Tobacco Use History This section includes a history of the smoking, or tobacco-related health factors, that were collected on or before the date of the Encounter. The data comes from the [place] facility where the Encounter took place. Date/Time Smoking Status/Tobacco Use Comment [facility] Dec 25, 2017 01:37 PM V1-PT DECL[place]ES [place] TO[place] CESS PRGM [facility] Dec 25, 2017 01:37 PM V1-PT DECLINES TOBACCO [place] CESSATION MEDS [facility] Dec 25, 2017 01:37 PM V1-PT THINKING ABOUT QUIT [place] TOBACCO USE [facility] May 26, 2017 01:03 PM [place] [facility] Jan 27, 2017 10:24 AM [place] [facility] Jan 27, 2017 10:24 AM V1-PT READY TO QUIT [place] TOBACCO USE [facility] Dec 31, 2015 09:11 AM V1-PT NOT INTERESTED IN [place] QUIT TOBACCO USE [facility] Oct 30, 2015 01:16 PM AH-BPR CONCERN SMOKING [place] [facility] Oct 30, 2015 01:16 PM AH-BPR SMOKING DEPLOYMENT [place] YES [facility] Oct 30, 2015 01:16 PM [place] [facility] Sep 10, 2014 02:45 PM [place] [facility] Sep 10, 2014 02:45 PM V1-PT DECLINES RE[place] TOB[place] CESS PRGM [facility] Sep 10, 2014 02:45 PM V1-PT THINKING ABOUT QUIT [place] TOBACCO USE [facility] Sep 10, 2014 02:45 PM V1-TOBACCO CESS MEDS NOT [place] PRESCRIBED Pt. will discuss with PCP tomorr ow. [facility] March 07, 2013 11:00 AM CURRENT [place] 1ppd [facility] March 07, 2013 11:00 AM V1-PT DECLINES [place] TO[place] CESS PRGM [facility] March 07, 2013 11:00 AM V1-PT DECLINES TOBACCO [place] CESSATION MEDS [facility] March 07, 2013 11:00 AM V1-PT NOT INTERESTED IN [place] QUIT TOBACCO USE [facility] Encounter Notes: All associated encounter notes This section contains the clinical notes associated to the Encounter. Date/Time Encounter Note(s) Provider Source Aug 31, 2020 10:24 AM TELEPHONE ENCOUNTER NOTE: RANDELL FUENTES [place] LOCAL TITLE: [facility] 1 CLINICAL CONTACT CENTER [facility] STANDARD TITLE: TELEPHONE ENCOUNTER NOTE DATE OF NOTE: AUG 31, 2020@10:24:17 ENTRY DATE: AUG 31, 2020@10:29:26 AUTHOR: RANDELL FUENTES EXP COSIGNER: URGENCY: STATUS: COMPLETED [facility] CLINICAL CONTACT CENTER Has ADDEND A Type of call: SYMPTOM. PCMM Provider Info: LOCAL - [place] [facility] ([id number]) PACT: [facility] 2 O (Focus: Primary Care Only) Primary Care Provider: Yesica Lopes PHONE :[phone] PAGER:[phone] Embedded Systems Engineer: Willam Reid Clinical Associate: Cleopatra Chu PHONE:[phone] Taffy Puller: Matti Bernard AXEL NE:[phone] PACT Clinical Pharmacist: Christy Clifford Surrogate Embedded Systems Engineer: Mariaelena Vides Clinical POC: Embedded Systems Engineer Willam Sherman Administrative POC: Administrative Assoc Matti Cm PHONE:[phone] Caller Response: SENT TO PACT The patient, VALENTINA REYNOLDS ([id number]) called the call center. Comments: Patient is calling with lowe r back pain, and would like a call back at Evaluation/Management Code: HC PRO PHONE CALL 5- 10 MIN ([phone]). Original call started at: AUG 31, 2020 @ 10:13 ( Call was suspended) - ELIZABETH SIM AUG 31, 2020@10:13:01 - AUG 31, 2 020@10:16:23 Ending at: 08/31/2020 @ 10:28:53 AM Length: 7 minutes. (Call was suspended. This call length is the total amount of time spent active in [employer] Helper.) Author: RANDELL FUENTES Caller Area: * [place] Chief Complaint: Not applicable to call. Nurse Notes: Unable to reach patient, TAD. Will fwd t o team for additional attempt. Thanks. Class Code: Other specified counseling. Contact Patient's Email Address: [email or web address] /zack/ RANDELL FUENTES REGISTERED NURSE Signed: 08/31/2020 10:29 Receipt Acknowledged By: 08/31/2020 13:20 /zack/ YESICA Raygoza MD 08/31/2020 ADDENDUM STATUS: COMPLETED Patient also called for renewal of comm care NS consult - will ask pain clinic to contact him about this because this is relate d /zack/ YESICA Raygoza MD Signed: 08/31/2020 13:23
--- OUTSIDE RECORDS SUMMARY | 2020-09-28 00:40 | XMS_ITS | Encounter Summary ---
:1985 Author Organization Department [facility] Address [address] [place] [id number] Care Team Providers Name Role Phone CARLOS A OLIVER Primary Care Provider Unavailable CARLOS A OLIVER Primary Care Provider Unavailable Selected Encounter This section includes the information on record at [place] for the Encounter. Date/Time Encounter Type Encounter Description Reason Provider Source Aug 31, 2020 10:23 Outpatient Encounter ADMIN PAT ACTIVTIES AM (MASNONCT) IHE Encounter Template Text not used by [place] Plan of Treatment: Future Appointments (+ 6 months) and Future Tests (+/- 45 days) The Plan of Treatment section includes future care activities for the patient from all [place] treatment facilities. This section includes future appointments and future orders which are active, pending or scheduled.Future Appointments This section includes appointments that were scheduled to occur 6 months from the date of the Encounter, up to a maximum of 20 appointments. The data [facility] [place] [facility] Appointment Date/Time Appointment Type Appointment Facili ty Name Sep 04, 2020 11:00 AM AMBULATORY - MEDICINE [facility] Sep 14, 2020 03:20 PM AMBULATORY - NONE [facility] Sep 17, 2020 03:00 PM AMBULATORY - PSYCHIATRY [facility] Sep 22, 2020 01:00 PM AMBULATORY - PSYCHIATRY [facility] Active, Pending, and Scheduled Orders This section includes a listing of several types of active, pending, and scheduled orders, including clinic medications orders, diagnostic test orders, procedure orders and consult orders; where the start date of the order is 45 days before the date of the Encounter or 45 days after the date of the Encounter. The data comes from all [place] treatment facilities. Test Date/Time Test Type Test Details Facility Name Aug 31, 2020 02:23 PM Consult Order [place]ITY [place] [facility] CARE-NEUROSURGERY Cons Visualization Developer's Choice Sep 04, 2020 12:33 PM Consult Order PHYSICAL [place] [facility] THERAPY-OUTPATIENT Cons Visualization Developer's Choice Sep 24, 2020 10:20 AM Consult Order COMMUNITY CARE-CIH [place] [facility] ACUPUNCTURE Cons Visualization Developer's Choice Social History: Smoking Status (Most current) and Tobacco Use (All prior to encounter date) This section includes the most current, and the historical, smoking and tobacco-related health factors from the [place] facility where the Encounter took place.Current Smoking Status This section includes the most current smoking, or tobacco-related health factor, from the [place] facility where the Encounter took place. Date/Time Current Smoking Status Comment Facility Dec 25, 2017 01:37 PM CURRENT [place] [facility] Tobacco Use History This section includes a history of the smoking, or tobacco-related health factors, that were collected on or before the date of the Encounter. The data comes from the [place] facility where the Encounter took place. Date/Time Smoking Status/Tobacco Use Comment [facility] Dec 25, 2017 01:37 PM V1-PT DECL[place]ES RE[place] TO[place] CESS PRGM [facility] Dec 25, 2017 01:37 PM V1-PT DECLINES TOBACCO [place] CESSATION MEDS [facility] Dec 25, 2017 01:37 PM V1-PT THINKING ABOUT QUIT [place] TOBACCO USE [facility] May 26, 2017 01:03 PM CURRENT [place] [facility] Jan 27, 2017 10:24 AM CURRENT [place] [facility] Jan 27, 2017 10:24 AM V1-PT READY TO QUIT [place] TOBACCO USE [facility] Dec 31, 2015 09:11 AM V1-PT NOT INTERESTED IN [place] QUIT TOBACCO USE [facility] Oct 30, 2015 01:16 PM AH-BPR CONCERN SMOKING [place] [facility] Oct 30, 2015 01:16 PM AH-BPR SMOKING DEPLOYMENT [place] YES [facility] Oct 30, 2015 01:16 PM CURRENT [place] [facility] Sep 10, 2014 02:45 PM CURRENT [place] [facility] Sep 10, 2014 02:45 PM V1-PT DECLINES REF [place] TOB[place] CESS PRGM [facility] Sep 10, 2014 02:45 PM V1-PT THINKING ABOUT QUIT [place] TOBACCO USE [facility] Sep 10, 2014 02:45 PM V1-TOBACCO CESS MEDS NOT [place] PRESCRIBED Pt. will discuss with PCP tomorr ow. [facility] March 07, 2013 11:00 AM CURRENT [place] 1ppd [facility] March 07, 2013 11:00 AM V1-PT DECLINES REF [place] TO[place] CESS PRGM [facility] March 07, 2013 11:00 AM V1-PT DECLINES TOBACCO [place] CESSATION MEDS [facility] March 07, 2013 11:00 AM V1-PT NOT INTERESTED [place] QUIT TOBACCO USE [facility] Encounter Notes: All associated encounter notes This section contains the clinical notes associated to the Encounter. Date/Time Encounter Note(s) Provider Source Aug 31, 2020 10:23 AM ADMINISTRATIVE NOTE: TERESA LI [place] LOCAL TITLE: Has Admin Note [facility] STANDARD TITLE: ADMINISTRATIVE NOTE DATE OF NOTE: AUG 31, 2020@10:23 ENTRY DATE: AUG 31, 2020@10:23:32 AUTHOR: TERESA LI EXP COSIGNER: URGENCY: STATUS: COMPLETED Has Admin Note Has ADDENDA Reason for call Clinic Name:[facility] [place] called the front annie k today stating his back is messed up again and he would like more steroid packets sent to his home. Address and phone confirmed. Please call Mr. Miles to discuss. Thank you. /zack/ TERESA LI Signed: 08/31/2020 10:26 Receipt Acknowledged By: * AWAITING SIGNATURE * PRINCE SWANSON * AWAITING SIGNATURE * PRINCE MCWILLIAMS 08/31/2020 13:06 /zack/ JENNIFER VELEZ Anesthesiologist 08/31/2020 ADDENDUM STATUS: COMPLETED I will place RTC clinic order for this Monday. /zack/ JENNIFER VELEZ Anesthesiologist Signed: 08/31/2020 13:09 08/31/2020 ADDENDUM STATUS: COMPLETED is scheduled Tuesday 09/04@8:30 for a galileo ne appt. /es/ TERESA LI Signed: 08/31/2020 13:22 08/31/2020 ADDENDUM STATUS: COMPLETED The is hoping to have a sooner PAIN ALEC EL 30 PHONE appt than his scheduled 09/04/20. The Pt s tates he cannot move due to back pain. Please advise /es/ QUEENIE GARCIA [place] Signed: 08/31/2020 13:39 Receipt Acknowledged By: * AWAITING SIGNATURE * PRINCE SWANSON * AWAITING SIGNATURE * JENNIFER VELEZ
--- OUTSIDE RECORDS SUMMARY | 2020-09-28 00:41 | XMS_ITS ---
:1985 Author Organization [facility] Address [address] [place] [address] Care Team Providers Name Role Phone CARLOS A OLIVER Primary Care Provider Unavailable CARLOS A OLIVRE Primary Care Provider Unavailable Selected Encounter This section includes the information on record at [place] for the Encounter. Date/Time Encounter Type Encounter Reason Provider Source Description February 10, 2020 04:26 Outpatient TELEPHONE TRIAGE ANALI AMES PM Encounter IHE Encounter Template Text not used by [place] Social History: Smoking Status (Most current) and Tobacco Use (All prior to encounter date) This section includes the most current, and the historical, smoking and tobacco-related health factors from the [place] facility where the Encounter took place.Current Smoking Status This section includes the most current smoking, or tobacco-related health factor, from the [place] facility where the Encounter took place. Date/Time Current Smoking Status Comment Facility Dec 25, 2017 01:37 PM CURRENT SMOKER [place] [facility] Tobacco Use History This section includes a history of the smoking, or tobacco-related health factors, that were collected on or before the date of the Encounter. The data comes from the [place] facility where the Encounter took place. Date/Time Smoking Status/Tobacco Use Comment Jeanette diaz Dec 25, 2017 01:37 PM V1-PT DECLINES RE[place] TO[place] CESS PRGM [facility] Dec 25, 2017 01:37 PM V1-PT DECLINES TOBACCO [place] CESSATION MEDS [facility] Dec 25, 2017 01:37 PM V1-PT THINKING ABOUT QUIT [place] TOBACCO USE [facility] May 26, 2017 01:03 PM CURRENT [place] [facility] Jan 27, 2017 10:24 AM [place] [facility] Jan 27, 2017 10:24 AM V1-PT READY TO QUIT [place] TOBACCO USE [facility] Dec 31, 2015 09:11 AM V1-PT NOT INTERESTED [place] QUIT TOBACCO USE [facility] Oct 30, 2015 01:16 PM AH-BPR CONCERN SMOKING [place] [facility] Oct 30, 2015 01:16 PM AH-BPR SMOKING DEPLOYMENT [place] YES [facility] Oct 30, 2015 01:16 PM CURRENT [place] [facility] Sep 10, 2014 02:45 PM CURRENT [place] [facility] Sep 10, 2014 02:45 PM V1-PT DECLINES RE[place] TO[place] CESS PRGM [facility] Sep 10, 2014 02:45 PM V1-PT THINKING ABOUT QUIT [place] TOBACCO USE [facility] Sep 10, 2014 02:45 PM V1-TOBACCO CESS MEDS NOT [place] PRESCRIBED Pt. will discuss with PCP tomorr ow. [facility] March 07, 2013 11:00 AM CURRENT [place] 1[place] [facility] March 07, 2013 11:00 AM V1-PT DECLINES REF [place] TOB[place] CESS PRGM [facility] March 07, 2013 11:00 AM V1-PT DECLINES [place]BACCO [place] CESSATION MEDS [facility] March 07, 2013 11:00 AM V1-PT NOT INTERESTED IN [place] QUIT TOBACCO USE [facility] Encounter Notes: All associated encounter notes This section contains the clinical notes associated to the Encounter. Date/Time Encounter Note(s) Provider Source February 10, 2020 04:26 PM TRIAGE NOTE: MARIE [place] LOCAL TITLE: Telephone Triage Note [facility] STANDARD TITLE: TRIAGE NOTE DATE OF NOTE: FEBRUARY 10, 2020@16:26:02 ENTRY DATE: FEBRUARY 10, 2020@16:37:23 AUTHOR: MARIE AMES EXP COSIGNER: URGENCY: STATUS: COMPLETED Telephone Triage Note Has ADDENDA Type of call: SYMPTOM. Caller Response: *OTHER The patient, VALENTINA REYNOLDS ([id number]) called the call center. [facility] COVID -19 SCREEN NEGATIVE Comments: Pt is having lower back pain with sciati c pain shooting down the left leg. He got a steroid shot last fall and thinks he might need another injection. He has also been having some 'gut pain'. He said i t started out high, on the right side near his sternum and now is a bit low er. Evaluation/Management Code: HC PRO PHONE CALL 11 -20 MIN ([phone]). Original call started at: FEBRUARY 10, 2020 @ 16:20 ( Call was suspended) - IMTIAZ MELÉNDEZ FEBRUARY 10, 2020@16:20:06 - February@16:24:56 Ending at: 02/10/2020 @ 4:36:35 PM Length: 15 minutes. (Call was suspended. This ca ll length is the total amount of time spent active in [employer] Record Manage r.) Author: MARIE AMES Caller Area: * [place] Chief Complaint: Lower Back Pain Triage Note Phone Triage MonFeb 10 2020 16:28:58 GMT-0400 ([facility] Time) Demographics 35 y/o Male Results CC: Lower Back Pain Nurse Recommendation: 12-24 Hours TEDP Suggestion: 12-24 Hours Nurse Recommended Follow-up Location: [facility] , [place] TED Suggested Follow-up Location: [facility] Values and Measures Pain scale: 7 Duration of CC: 2 Weeks Positive Responses HPI: back pain, duration longer than 1 month HPI: back pain, lower back HPI: leg weakness, new or worsening Negative Responses Denies: HPI: back injury, recent Education Verbal Education Provided for: Herniated Disk Home Care Herniated Disk Home Care Warning Signs Nurse Notes: has seen Interventional Pain Team in [facility] for back issues. Abdominal pain started right upper abdomen this Winter now is lower on the right side. Today rates pin as a 3/10. S ome bloating/distension at times, no N or V, no diarrhea or constipation, no fever. Taylor etite is good. Forwarding info to PC Team a nd Interventional Pain Team for F/U tomorrow please. does have video connect capability if ne eded. Class Code: Counseling, unspecified. Contact Patient's Email Address: /zack/ MARIE AMES Staff Nurse Signed: 02/10/2020 16:37 Receipt Acknowledged By: 02/11/2020 08:30 /es/ JENNIFER VELEZ Anesthesiologist 02/11/2020 09:29 /zack/ CARLOS A Raygoza MD 02/11/2020 08:21 /es/ CASTRO MATAMOROS RN, MIKE, MILES 02/11/2020 ADDENDUM STATUS: COMPLETED Defer to providers for plan. /es/ CASTRO MATAMOROS RN, MIKE, CFCIRILO Signed: 02/11/2020 08:23 02/11/2020 ADDENDUM STATUS: COMPLETED Called and left VM with pt. /es/ JENNIFER VELEZ Anesthesiologist Signed: 02/11/2020 08:34 02/11/2020 ADDENDUM STATUS: COMPLETED If pain clinic brings him in for injection, I ca n coordinate a same day evaluation for abdominal pain. I would not bring him in before pain clinic addr esses the radicular symptoms, because I do not want to get caught in a situation that he is angry with me for not addressing these symptoms. He is an active d rai and opioids are not a safe option for him. /zack/ CARLOS A Raygoza MD Signed: 02/11/2020 09:30 Receipt Acknowledged By: 02/11/2020 10:24 /es/ JENNIFER VELEZ Anesthesiologist 02/12/2020 ADDENDUM STATUS: COMPLETED Pt called and left VM with pain clinic today. I called him back. He reports flare-up of LBP a nd LLE pain when he bent down to pick something up. Pain rated as 7/10 on VAS pain scale. Pain is 60 % in back and 40% in LLE (lateral thigh and lateral calf). He rep orts intermittent numbness/tingling in this distribution. No LE weakness. No saddle ane sthesia or urinary/bowel retention/incontinence. States he is unsure of effic acy of injections. Last one helped the most, but he did not get relief until several months after. States he had a good Spring. Last injection was done by Dr. Cotton included both SI joint injection and L L4-L5 TFESI. Unsure which one helped. Pr ior injections including L5-S1 did not help as much and S1 TFESI did not help at all Discussed options in light o f COVID-19 pandemic. Offered him oral steroid taper and he agreed. He will call me to let me know i f this helps or not. /zack/ JENNIFER VELEZ Anesthesiologist Signed: 02/12/2020 13:34 Receipt Acknowledged By: 02/13/2020 13:15 /madelyn Raygoza MD 02/12/2020 ADDENDUM STATUS: COMPLETED Told him to stop taking ibuprofen when taking th e steroid and he understood. /zack/ JENNIFER VELEZ Anesthesiologist Signed: 02/12/2020 13:35 02/13/2020 ADDENDUM STATUS: COMPLETED Adding test caller to arrange for VVC today or t omorrow. /zack/ CARLOS A Raygoza MD Signed: 02/13/2020 13:15 Receipt Acknowledged By: 02/18/2020 08:20 /madelyn MOTLEY [email or web address] 02/13/2020 ADDENDUM STATUS: COMPLETED 1st call, no answer. Left message with my contac t number for return call. PLAN: To do a VVC test call for VVC appointment. /madelyn MOTLEY [email or web address] Signed: 02/13/2020 13:20 02/13/2020 ADDENDUM STATUS: COMPLETED Attempted 2nd call, no answer. vm again. /madelyn MOTLEY [email or web address] Signed: 02/13/2020 14:12 02/18/2020 ADDENDUM STATUS: COMPLETED Patient has not responded to writers contact att empts. /madelyn MOTLEY [email or web address] Signed: 02/18/2020 08:19 Receipt Acknowledged By: 02/24/2020 11:19 /madelyn Raygoza MD
--- OUTSIDE RECORDS SUMMARY | 2020-09-28 00:41 | XMS_ITS | Encounter Summary ---
:1985 Author Organization [facility] Address [address] [place] [id number] Care Team Providers Name Role Phone CARLOS A OLIVER Primary Care Provider Unavailable CARLOS A OLIVER Primary Care Provider Unavailable Selected Encounter This section includes the information on record at [place] for the Encounter. Date/Time Encounter Type Encounter Description Reason Provider Source Jan 06, 2020 02:28 Outpatient Encounter TELEPHONE TRIAGE PM IHE Encounter [...] 2017 01:37 PM CURRENT SMOKER BREANN [facility] Tobacco Use History This section includes a history of the smoking, or tobacco-related health factors, that were collected on or before the date of the Encounter. The data comes from the [place] facility where the Encounter took place. Date/Time Smoking Status/Tobacco Use Comment Jeanette diaz Dec 25, 2017 01:37 PM V1-PT DECLINES REF [place] TOBACCO CESS PRGM [facility] Dec 25, 2017 01:37 PM V1-PT DECLINES TOBACCO [place] CESSATION MEDS [facility] Dec 25, 2017 01:37 PM V1-PT THINKING ABOUT QUIT BREANN [place] TOBACCO USE [facility] May 26, 2017 01:03 PM CURRENT SMOKER [place] [facility] Jan 27, 2017 10:24 AM CURRENT SMOKER [place] [facility] Jan 27, 2017 10:24 AM V1-PT READY TO QUIT [place] TOBACCO USE [facility] Dec 31, 2015 09:11 AM V1-PT NOT INTERESTED IN [place] QUIT TOBACCO USE [facility] Oct 30, 2015 01:16 PM AH-BPR CONCERN SMOKING [place] [facility] Oct 30, 2015 01:16 PM AH-BPR SMOKING DEPLOYMENT [place] YES [facility] Oct 30, 2015 01:16 PM CUR[place] [facility] Sep 10, 2014 02:45 PM CURRENT [place] [facility] Sep 10, 2014 02:45 PM V1-PT DECLINES [place]F [place] TOBAC[place] CESS PRGM [facility] Sep 10, 2014 02:45 PM V1-PT THINKING ABOUT QUIT [place] TOBACCO USE [facility] Sep 10, 2014 02:45 PM V1-TOBACCO CESS MEDS [place] PRESCRIBED Pt. will discuss with PCP tomorr ow. [facility] March 07, 2013 11:00 AM CURRENT [place] [address] [facility] March 07, 2013 11:00 AM V1-PT DECLINES [place] TOBAC[place] CESS PRGM [facility] March 07, 2013 11:00 AM V1-PT DECLINES [place]BACCO [place] CESSATION MED[facility] March 07, 2013 11:00 AM V1-PT NOT INTERESTED [place] QUIT TOBACCO USE [facility] Encounter Notes: All associated encounter notes This section contains the clinical notes associated to the Encounter. Date/Time Encounter Note(s) Provider Source Jan 06, 2020 02:28 PM TRIAGE NOTE: SUSAN [place] [facility] LOCAL TITLE: Telephone Triage Note STANDARD TITLE: TRIAGE NOTE DATE OF NOTE: JAN 06, 2020@14:28:21 ENTRY DATE: JAN 06, 2020@14:30:19 AUTHOR: SUSAN [place] EXP COSIGNER: URGENCY: STATUS: COMPLETED Type of call: MEDICATION REFILL. Caller Response: *OTHER The patient, VALENTINA REYNOLDS ([id number]) called the call center. [facility] COVID -19 SCREEN NEGATIVE Comments: Please renew and mail OMEPRAZOLE 20MG EC CAP Evaluation/Management Code: HC PRO PHONE CALL 5- 10 MIN ([phone]). Starting at: 01/06/2020 @ 2:28:21 PM Ending at: 01/06/2020 @ 2:30:04 PM Length: 1 minutes. Author: SUSAN MON[place]NA Caller Area: * [place] Chief Complaint: Not applicable to call. Class Code: Other specified counseling. Contact Patient's Email Address: /zack/ SUSAN MONTANA [employer] RENTAL AGENT Signed: 01/06/2020 14:30 Receipt Acknowledged By: 01/06/2020 14:56 /zack/ KAREN NEWTON LPN
--- OUTSIDE RECORDS SUMMARY | 2020-09-28 00:41 | XMS_ITS | Encounter Summary ---
:1985 Author Organization [facility] Address [address] [place] [id number] Care Team Providers Name Role Phone CARLOS A OLIVER Primary Care Provider Unavailable CARLOS A OLIVER Primary Care Provider Unavailable Selected Encounter This section includes the information on record at [place] for the Encounter. Date/Time Encounter Type Encounter Description Reason Provider Source Jan 03, 2020 11:10 Outpatient Encounter COMMUNITY CARE AM CONSULT IHE Encounter Template Text not used by [facility] Social History: Smoking Status (Most current) and Tobacco Use (All prior to encounter date) This section includes the most current, and the historical, smoking and tobacco-related health factors from the [place] facility where the Encounter took place.Current Smoking Status This section includes the most current smoking, or tobacco-related health factor, from the [place] facility where the Encounter took place. Date/Time Current Smoking Status Comment Facility Dec 25, 2017 01:37 PM CURRENT SMOKER BRE[place] [facility] Tobacco Use History This section includes a history of the smoking, or tobacco-related health factors, that were collected on or before the date of the Encounter. The data comes from the [place] facility where the Encounter took place. Date/Time Smoking Status/Tobacco Use Comment Jeanette diaz Dec 25, 2017 01:37 PM V1-PT DECL[place]ES [place] C[place] PR[facility] Dec 25, 2017 01:37 PM V1-PT DECLINES TOBACCO [place] CESS[facility]S [facility] Dec 25, 2017 01:37 PM V1-PT THINKING ABOUT QUIT [place] TOB[place] USE [facility] May 26, 2017 01:03 PM CURRENT SMOKER [place] [facility] Jan 27, 2017 10:24 AM [place] [facility] Jan 27, 2017 10:24 AM V1-PT READY TO QUIT [place] TOBACCO USE [facility] Dec 31, 2015 09:11 AM V1-PT NOT INTERESTED [place] QUIT TOBACCO USE [facility] Oct 30, 2015 01:16 PM AH-BPR CONCERN SMOKING [place] [facility] Oct 30, 2015 01:16 PM AH-BPR SMOKING DEPLOYMENT [place] YES [facility] Oct 30, 2015 01:16 PM CUR[place] [facility] Sep 10, 2014 02:45 PM [place] [facility] Sep 10, 2014 02:45 PM V1-PT DECL[place]ES [place]F [place] PRGM [facility] Sep 10, 2014 02:45 PM V1-PT THINKING ABOUT QUIT [place] TOBACCO USE [facility] Sep 10, 2014 02:45 PM V1-TOBACCO CESS MEDS NOT [place] PRESCRIBED Pt. will discuss with PCP tomorr ow. [facility] March 07, 2013 11:00 AM CUR[place] [facility] March 07, 2013 11:00 AM V1-PT DECL[place]ES [place]F [place] PRGM [facility] March 07, 2013 11:00 AM V1-PT DECL[place]ES [place]CO [place] [facility] [facility] March 07, 2013 11:00 AM V1-PT NOT INTERESTED [place] QUIT TOBACCO USE [facility] Encounter Notes: All associated encounter notes This section contains the clinical notes associated to the Encounter. Date/Time Encounter Note(s) Provider Source Jan 03, 2020 11:10 AM NONVA CONSULT: [place] LOCAL TITLE: COMMUNITY CARE CONSULT RESULT NOTE [facility] STANDARD TITLE: NONVA CONSULT DATE OF NOTE: JAN 03, 2020@11:10 ENTRY DATE: JAN 03, 2020@11:10:26 AUTHOR: SALLY PHILLIP EXP COSIGNER: URGENCY: STATUS: COMPLETED VistA Imaging - Scanned Document NON [facility] CARE [facility]D NEUROSURGERY 12/23/2019 /zack/ turner Traffic Agent Signed: 01/03/2020 16:09
--- OUTSIDE RECORDS SUMMARY | 2020-09-28 00:41 | XMS_ITS ---
:1985 Author Organization [facility] Address [address] [place] [address] Care Team Providers Name Role Phone CARLOS A OLIVER Primary Care Provider Unavailable CARLOS A OLIVER Primary Care Provider Unavailable Selected Encounter This section includes the information on record at [place] for the Encounter. Date/Time Encounter Type Encounter Description Reason Provider Source Nov 11, 2019 11:41 Outpatient Encounter ADMIN PAT ACTIVTIES AM ([place]) IHE Encounter Template Text not used by [facility] Social History: Smoking Status (Most current) and Tobacco Use (All prior to encounter date) This section includes the most current, and the historical, smoking and tobacco-related health factors from the [place] facility where the Encounter took place.Current Smoking Status This section includes the most current smoking, or tobacco-related health factor, from the [place] facility where the Encounter took place. Date/Time Current Smoking Status Comment Facility Dec 25, 2017 01:37 PM CURRENT SMOKER [place] [facility] Tobacco Use History This section includes a history of the smoking, or tobacco-related health factors, that were collected on or before the date of the Encounter. The data comes from the [place] facility where the Encounter took place. Date/Time Smoking Status/Tobacco Use Comment Jeanette diaz Dec 25, 2017 01:37 PM V1-PT DECLINES REF [place] CESS PRGM [facility] Dec 25, 2017 01:37 PM V1-PT DECL[place]ES [place] CESS[place] MEDS [facility] Dec 25, 2017 01:37 PM V1-PT THINKING ABOUT QUIT [place] TOBAC[place] USE [facility] May 26, 2017 01:03 PM CURRENT [place] [facility] Jan 27, 2017 10:24 AM CURRENT [place] [facility] Jan 27, 2017 10:24 AM V1-PT READY TO QUIT [place] TOBACCO USE [facility] Dec 31, 2015 09:11 AM V1-PT NOT INTERESTED [place] QU[place] TOB[place]CO USE [facility] Oct 30, 2015 01:16 PM AH-BPR CONCERN SMOKING [place] [facility] Oct 30, 2015 01:16 PM AH-BPR SMOKING DEPLOYMENT [place] YES [facility] Oct 30, 2015 01:16 PM CURRENT [place] [facility] Sep 10, 2014 02:45 PM CURRENT [place] [facility] Sep 10, 2014 02:45 PM V1-PT DECL[place]ES [place] CESS PRGM [facility] Sep 10, 2014 02:45 PM V1-PT THINKING ABOUT QUIT [place] TOBACCO USE [facility] Sep 10, 2014 02:45 PM V1-TOBACCO CESS MEDS [place] PRESCRIBED Pt. will discuss with PCP tomorr ow. [facility] March 07, 2013 11:00 AM CURRENT [place] [facility] March 07, 2013 11:00 AM V1-PT DECL[place]ES [place]F [place] C[place] PRGM [facility] March 07, 2013 11:00 AM V1-PT DECL[place]ES [place]CO [place] CESS[place] MEDS [facility] March 07, 2013 11:00 AM V1-PT NOT INTERESTED [place] QUIT TOBACCO USE [facility] Encounter Notes: All associated encounter notes This section contains the clinical notes associated to the Encounter. Date/Time Encounter Note(s) Provider Source Nov 11, 2019 11:41 AM NONVA NOTE: T[place]COSO [place] LOCAL TITLE: NonVA Medical Records [facility] STANDARD TITLE: NONVA NOTE DATE OF NOTE: NOV 11, 2019@11:41 ENTRY DATE: NOV 11, 2019@11:41:58 AUTHOR: TIANNA TRONCOSO EXP COSIGNER: URGENCY: STATUS: COMPLETED NON [facility] DATE: 10/24/19 NEUROSUGERY SERVICES OFFICE VISIT FACILITY: [facility] /zack/ TIANNA TRONCOSO [employer]HW[address] ADMINISTRATIVE ENGINEER Signed: 11/11/2019 11:42
== END 2020-09-28 00:56 ==
PROVIDERS: PCP Emergency Medicine; Visit Provider Neurological Surgery
DX: M51.26 Other intervertebral disc displacement, lumbar region (principal); M47.816 Spondylosis without myelopathy or radiculopathy, lumbar region; M48.061 Spinal stenosis, lumbar region without neurogenic claudication
CPT/HCPCS: 72148

== ENCOUNTER 2020-11-02 05:20 | Outpatient (CLI) | payer OTHER, SELFPAY ==
[2020-11-02 11:17] LABS: Abs Immature Grans 0.06 10^3/uL (0.0-0.06); Absolute Basophil Count 0.06 10^3/uL (0.0-0.2); Absolute Eosinophil Count 0.18 10^3/uL (0.0-0.7); Absolute Monocyte Count 1.13 10^3/uL (0.1-0.8); Absolute Neutrophil Count 8.13 10^3/uL (1.2-6.7); Basophils % 0.5; Eosinophils % 1.4; HCT 42.9 % (40.0-50.0); HGB 14.6 g/dL (13.5-17.5); Immature Grans % 0.5; Lymphocytes % 25.5; MCH 32.2 pg (27.0-33.0); MCV 94.7 fL (80-95); MPV 10.1 fL (8.0-11.0); Monocytes % 8.8; Neutrophils % 63.3; Nucleated RBC 0 %; Platelet Count 279 10^3/uL (130-400); RBC 4.53 10^6/uL (4.36-5.78); RDW 12.4 % (11.8-14.1); RDW-SD 43.5 fL; WBC 12.84 10^3/uL (4.4-10.8)
[2020-11-02 11:20] LABS: Absolute Lymphocyte Count 3.27 10^3/uL (1.2-3.4)
== END 2020-11-02 05:40 ==
PROVIDERS: PCP Emergency Medicine; Visit Provider Emergency Medicine
DX: M54.16 Radiculopathy, lumbar region (principal); M51.16 Intervertebral disc disorders with radiculopathy, lumbar region; Z01.818 Encounter for other preprocedural examination
CPT/HCPCS: 36415; 85025

== ENCOUNTER 2023-04-13 01:51 | Outpatient (CLI) | payer OTHER, SELFPAY ==
[2023-04-13] MEDS: Gadoterate meglumine 20 ML SYRINGE IVP (08:37)
[2023-04-13] MEDS: Normal Saline Flush 10 ML SYR IVP (08:38)
--- NOTE | 2023-04-13 08:40 | DI.MRI_ITS ---
Exam(s) MR LOWER JOINT LT WO EXAM: MR LOWER JOINT LT WO CLINICAL HISTORY: PROGRESSIVE LT HIP PAIN, LBP AND RADICULAR LEG PAIN, M54.50, [id number] TECHNIQUE: Multiplanar multisequence MRI of Pelvis and left hip was performed COMPARISON: Exam interpreted without benefit of comparison plain films. FINDINGS: Bones: There is no fracture or contusion pattern. No bone marrow edema is seen. Joints: Left hip: No significant joint effusion or gross labral defect is present. Right hip: Small amount of joint fluid seen superior and posteriorly. The SI joints and symphysis pubis are well maintained. Musculotendinous structures: Musculotendinous structures demonstrate no abnormality. Intrapelvic structures demonstrate no significant abnormality. IMPRESSION: Small right hip joint effusion. No abnormality identified involving the left hip. DATA REPOSITORY:
--- NOTE | 2023-04-13 09:45 | DI.MRI_ITS ---
Exam(s) MR LUMBAR SPINE WO/W EXAM: MR LUMBAR SPINE WO/W CLINICAL HISTORY: REC PROG LT LBP LEG RAD, S/P L4-5 DECOMPRESSION, [id number] TECHNIQUE: Multiplanar multisequence MRI of the Lumbar Spine was performed. CONTRAST MATERIAL: IV Contrast: 20 mL of Dotarem contrast administered. COMPARISON: CR CHEST 2 VIEWS PA,LAT from 04/28/2011 MR MR LUMBAR SPINE WO from 09/28/2020 FINDINGS: Bones: The last intervertebral disc space is designated the L5/S1 level for the numbering purpose of this examination. The vertebral body heights are well maintained. Alignment is satisfactory. The sig nal characteristics are unremarkable. Cord: The conus tip ends at the T12 level. It is of normal size and signal intensity. T12-L1: No disc herniations or bulges are present. L1-2: No disc herniations or bulges are present. L2-3: No disc herniations or bulges are present. L3-4: No disc herniations or bulges are present. L4-5: Large left paracentral disc herniation with mild inferior extrusion a disc material again note d. The appears larger when compared with the prior exam. A causes significant narrowing of the cent ral canal. No significant neural foraminal narrowing. L5-S1: No disc herniations or bulges are present. The visualized SI joints and sacrum are well maintained. Soft tissues: The paraspinal soft tissues are unremarkable. There is no evidence of suspicious enhancement. IMPRESSION: Large left paracentral disc herniation is again noted at L4-5 with significant central canal stenosis . It appears larger when compared with the prior study. No new findings. DATA REPOSITORY:
== END 2023-04-13 02:11 ==
LOC: DI 01:51
PROVIDERS: Visit Provider Physician Assistant Medical
DX: M48.02 Spinal stenosis, cervical region; M25.451 Effusion, right hip; M48.061 Spinal stenosis, lumbar region without neurogenic claudication; M54.50 Low back pain, unspecified
CPT/HCPCS: 72158; 73721

== ENCOUNTER → 2025-09-25 00:34 | Outpatient (CLI) | payer OTHER, SELFPAY ==
--- NOTE | 2025-09-26 14:35 | DI.RAD_ITS ---
Exam(s) XR SHOULDER LT COMPLETE 2+V EXAM: XR SHOULDER LT COMPLETE 2+V CLINICAL HISTORY: LT SHOULDER PAIN, M25.512,[id number]. TECHNIQUE: 2D digital imaging was performed. Four views. COMPARISON: No exams were available for comparison FINDINGS: BONES: No acute fracture is present. No bony destructive lesion is seen. JOINTS: No dislocation present. There are minimal degenerative changes at the AC joint. Glenohumeral joint is unremarkable. SOFT TISSUE: Normal. IMPRESSION: Unremarkable radiographs of the left shoulder. DATA REPOSITORY: RADIATION DOSE DELIVERED:
== END ==
PROVIDERS: Visit Provider Physician Assistant
DX: M25.512 Pain in left shoulder (principal)
CPT/HCPCS: 73030